=== PATIENT | female | born 1955 | race Caucasian/White ===

== ENCOUNTER → 2016-10-11 | Outpatient (CLI) | payer OTHER | LOC: FIMAGING 10:01 | PROVIDERS: ATTEND Family Medicine | DX: Z12.31 Encounter for screening mammogram for malignant neoplasm of breast (principal) | CPT/HCPCS: G0202 ==

== ENCOUNTER 2016-10-13 21:13 | Emergency (ER) | payer OTHER ==
[2016-10-13 21:47] LABS: % IMMATURE GRANULYOCYTES 0.4 % (0.0-1.1); ABSOLUTE IMMATURE GRANULOCYTES 0.03 10^3/uL (0.00-0.10); ADD DIFF? NO; ADD MORPH? NO; ADD SCAN? NO; ATYPICAL LYMPHOCYTE FLAG 10 (0-99); FRAGMENT RBC FLAG 0 (0-99); HEMATOCRIT 42.4 % (38.0-47.0); LEFT SHIFT FLG 0 (0-99); LIPEMIA HEMOLYSIS FLAG 80 (0-99); MEAN CELL HEMOGLOBIN 31.3 pg (27.9-34.1); MEAN CELL VOLUME 94.6 fL (81.5-99.8); MEAN PLATELET VOLUME 10.9 fL (8.7-11.7); PLATELET CLUMPS FLAG 0 (0-99); PLATELET COUNT 222 10^3/uL (150-400); RED BLOOD CELL COUNT 4.48 10^6/uL (4.18-5.33); RED CELL DISTRIBUTION WIDTH 14.3 % (11.5-15.2)
[2016-10-13 22:02] LABS: ALANINE AMINOTRANSFERASE 49 IU/L (9-52); ALBUMIN 4.5 g/dL (3.5-5.0); ALKALINE PHOSPHATASE 71 IU/L (38-126); ANION GAP 14 mEq/L (8-16); ASPARTATE AMINOTRANSFERASE 33 IU/L (14-46); BILIRUBIN,TOTAL 0.7 mg/dL (0.1-1.4); BILIRUBIN-CONJUGATED 0.3 mg/dL (0.0-0.5); BILIRUBIN-UNCONJUGATED 0.4 mg/dL (0.0-1.1); CALCIUM 9.7 mg/dL (8.5-10.4); CARBON DIOXIDE 28 mEq/l (22-31); CHLORIDE 97 mEq/L (97-110); CREATININE 0.8 mg/dL (0.6-1.0); GLOMERULAR FILTRATION RATE > 60; GLUCOSE 92 mg/dL (70-100); SODIUM 139 mEq/L (134-144); TOTAL PROTEIN 7.7 g/dL (6.3-8.2)
--- NOTE | 2016-10-13 22:06 | EDPHY ---
H & P Stated Complaint: pt c/o R sided abd pain radiating into lower back, nausea - no vomiting Time Seen by Provider: 10/13/16 21:39 HPI/ROS: CHIEF COMPLAINT: Right upper quadrant pain HISTORY OF PRESENT ILLNESS: 61-year-old female complaining of 1 day of right upper quadrant pain radiating to her back with associated nausea. No vomiting. The pain seemed to start yesterday morning approximately 20 minutes after eating. Currently she is hungry for ice cream only with no nausea or vomiting currently. She is complaining of pain in this location. No recent URI symptoms , no cough or illness. No urinary complaints. She has a history of pulmonary embolus, has been off of anticoagulant medications for some time. No history of abdominal surgeries REVIEW OF SYSTEMS: A ten point review of systems was performed and is negative with the exception of the items mentioned in the HPI PAST MEDICAL & SURGICAL HISTORY: Remote history of pulmonary embolus. History of hypothyroid. COPD. Home oxygen dependent. SOCIAL HISTORY:nonsmoker PHYSICAL EXAM (Prior to examination, patient consented to physical exam, hands were washed and my usual and customary physical exam procedures followed) 1) GENERAL: obese, alert and oriented. Appears to be in no acute distress. 2) HEAD: Normocephalic, atraumatic 3) HEENT: Pupils equal, round, reactive to light bilaterally. Sclera anicteric. 4) NECK: Full range of motion, no meningeal signs. 5) LUNGS: Clear auscultation bilaterally, no wheezes, no rhonchi, no retractions. 6) HEART: Regular rate and rhythm, no murmur, no heave, no gallop. 7) ABDOMEN: No guarding, negative McBurney's, positive Gore's, negative Rovsing's, negative peritoneal sign, 8) MUSCULOSKELETAL: Moving all extremities, no focal areas of tenderness, no obvious trauma. No peripheral edema or discoloration. 9) BACK: No CVA tenderness, no midline vertebral tenderness, no fluctuance, no step-off, no obvious trauma, no visual or palpable abnormality. 10) SKIN: No rash, no petechiae. 11) Psychiatric: Patient is oriented X 3, there is no agitation. DIFFERENTIAL DIAGNOSIS: In no particular order, including but not limited to biliary colic, cholecystitis, peptic ulcer disease, pancreatitis, and gastroenteritis. This is a partial list of diagnoses considered. These considerations are based on history, physical exam, past history and reassessment. - Medical/Surgical History Hx Asthma: Yes Hx Chronic Respiratory Disease: Yes Hx Diabetes: No Hx Cardiac Disease: No Hx Renal Disease: No Hx Cirrhosis: No Hx Alcoholism: No Hx HIV/AIDS: No Hx Splenectomy or Spleen Trauma: No Other PMH: BUNIONECTOMY,GOUT,HYPOTHYROID, cataract surgery R eye, copd, hypertension, asthma - Social History Smoking Status: Former smoker Constitutional: Initial Vital Signs Temperature (C) 36.9 C 10/13/16 21:17 Heart Rate 86 10/13/16 21: Respiratory Rate 18 10/13/16 21:17 Blood Pressure 157/98 H 10/13/16 21:17 O2 Sat (%) 94 10/13/16 21:17 O2 Delivery Mode Nasal Cannula O2 (L/minute) 3 Allergies/Adverse Reactions: codeine [Codeine] Allergy (Unknown, Verified 10/13/16 21:23) lidocaine [Lidocaine] Allergy (Unknown, Verified 10/13/16 21:23) methylprednisolone Allergy (Verified 10/13/16 21:23) Home Medications: Medication Instructions Recorded Allopurinol [Allopurinol 300 MG 300 mg PO HS 04/03/14 (RX)] Aspirin [Aspirin 81mg (*)] 81 mg PO DAILY 04/03/14 Calcium Carbonate [CALTRATE 600] 600 mg PO DAILY 04/03/14 LORazepam [Ativan (*)] 0.5 - 1 mg PO Q8 PRN 04/03/14 Levothyroxine [Synthroid 112 mcg 112 mcg PO DAILY06 04/03/14 (*)] Multivitamins [Multivitamin (*)] 1 each PO DAILY 04/03/14 [place]-3 Fatty Acids [Fish Oil 1000 1,000 mg PO DAILY 04/03/14 mg (*)] Triamcinolone 0.1% [Triamcinolone 1 aubrie TP DAILY PRN 04/03/14 0.1% Cream (*)] Vitamin B Complex [B Complex] 1 each PO DAILY 04/03/14 Zolpidem Tartrate [Ambien 5MG (*)] 5 mg PO HS PRN 04/03/14 Acetaminophen [Tylenol 325mg (*)] 650 mg PO Q4 PRN #0 tab 04/04/14 Albuterol 5 mg/ml INH 10/13/16 Ciprofloxacin [Cipro] 500 mg PO BID #14 tab 10/13/16 Lexapro 10/13/16 Symbicort 160-4.5 Mcg Inh (*) 10/13/16 Triamterene-Hctz 37.5-25 mg Cp 10/13/16 metroNIDAZOLE [Flagyl 500 mg (*)] 500 mg PO TID #21 tab 10/13/16 Medical Decision Making - Diagnostics Imaging Results: Imaging Impressions Abdomen Ultrasound 10/13/16 21:49 Impression: 1. No acute findings in the abdomen. 2. Suboptimally visualized enlarged fatty liver with an equivocal right hepatic lesion that is most likely related to asymmetric fatty replacement or artifact, however, given limited sensitivity of ultrasound, MR abdomen with contrast is recommended for further evaluation. Findings discussed with Piper Edward 10/13/2016 at 22:25. Chest X-Ray 10/13/16 21:49 Impression: Borderline cardiomegaly. Chest/Thorax CTA 10/13/16 22:31 Impression: 1. Equivocal stranding adjacent to the sigmoid colon, which could be related to minimal diverticulitis. 2. No visible pulmonary embolus 3. Enlarged fatty liver with no suspicious hepatic lesions identified. 4. Mild stool in the colon. 5. Additional findings as above. Findings discussed with Piper Edward 10/13/2016 at 23:23. Abdomen CT 10/13/16 22:32 Impression: 1. Equivocal stranding adjacent to the sigmoid colon, which could be related to minimal diverticulitis. 2. No visible pulmonary embolus 3. Enlarged fatty liver with no suspicious hepatic lesions identified. 4. Mild stool in the colon. 5. Additional findings as above. Findings discussed with Piper Edward 10/13/2016 at 23:23. Images reviewed by myself ED Course/Re-evaluation: 10:30 p.m.: This patient was discussed with Dr. Avila Conner in the emergency department. Her ultrasound of the gallbladder is negative. She has a remote history of pulmonary embolus and is complaining of right upper quadrant and right lower chest pain. She is also noted to have abnormal D- dimer. We discussed concerns over possible peripheral pulmonary embolus and recommended CT imaging of the chest abdomen and pelvis. Indications risks benefits discussed with patient and she consents. 11:40 p.m.: Patient re-evaluated with serial examinations. We discussed her imaging results showing possible diverticulitis in the sigmoid colon however no abnormal findings in the ascending colon at the hepatic flexure. She had normal CT angiography of the chest negative for pulmonary embolus. Plan will be treatment for diverticulitis. She has no evidence of abscess or perforation. The specific etiology of her right upper quadrant pain is not completely clear at this time as she has a normal gallbladder ultrasound, no evidence of pulmonary embolus, no infiltrate. I also think that cardiac etiology such as SD, aortic dissection, less than likely as her symptoms have been occurring for 24 hours, she has normal troponin, no ST elevation or depression. We discussed possibility of early zoster without clinical manifestations. I think she can be discharged. I have offered admission which she declines. I recommend close follow up with her primary care provider . In the meantime given usual and customary discharge precautions and instructions. She feels comfortable being discharged. - Data Points Laboratory Results: Laboratory Results 10/13/16 21:26 10/13/16 21:26 10/14/16 10/13/16 10/13/16 00:10 21:56 21:56 WBC RBC Hgb Hct MCV MCH MCHC RDW Plt Count MPV Neut % (Auto) Lymph % (Auto) [place] % (Auto) Eos % (Auto) Baso % (Auto) Nucleat RBC Rel Count Absolute Neuts (auto) Absolute Lymphs (auto) Absolute Monos (auto) Absolute Eos (auto) Absolute Basos (auto) Absolute Nucleated RBC Immature Gran % Immature Gran # D-Dimer 0.55 ug/mLFEU H ug/mLFEU (0.00-0.50) Sodium Potassium Chloride Carbon Dioxide Anion Gap BUN Creatinine Estimated GFR Glucose Calcium Total Bilirubin Conjugated Bilirubin Unconjugated Bilirubin AST ALT Alkaline Phosphatase Troponin I < 0.012 ng/mL ng/mL (0-0.034) Total Protein Albumin Lipase Urine Color YELLOW Urine Appearance CLEAR Urine pH 6.0 (5.0-7.5) Ur Specific [place] > 1.035 H (1.002-1.030) Urine Protein NEGATIVE (NEGATIVE) Urine Ketones NEGATIVE (NEGATIVE) Urine Blood NEGATIVE (NEGATIVE) Urine Nitrate NEGATIVE (NEGATIVE) Urine Bilirubin NEGATIVE (NEGATIVE) Urine Urobilinogen NEGATIVE EU EU (0.2-1.0) Ur Leukocyte Esterase 2+ H (NEGATIVE) Urine RBC Pending Urine WBC Pending Ur Epithelial Cells Pending Urine Glucose NEGATIVE (NEGATIVE) 10/13/16 10/13/16 21:26 21:26 WBC 8.53 10^3/uL 10^3/uL (3.80-9.50) RBC 4.48 10^6/uL 10^6/uL (4.18-5.33) Hgb 14.0 g/dL g/dL (12.6-16.3) Hct 42.4 % % (38.0-47.0) MCV 94.6 fL fL (81.5-99.8) MCH 31.3 pg pg (27.9-34.1) MCHC 33.0 g/dL g/dL (32.4-36.7) RDW 14.3 % % (11.5-15.2) Plt Count 222 10^3/uL 10^3/uL (150-400) MPV 10.9 fL fL (8.7-11.7) Neut % (Auto) 58.8 % % (39.3-74.2) Lymph % (Auto) 30.8 % % (15.0-45.0) [place] % (Auto) 6.0 % % (4.5-13.0) Eos % (Auto) 3.4 % % (0.6-7.6) Baso % (Auto) 0.6 % % (0.3-1.7) Nucleat RBC Rel Count 0.0 % % (0.0-0.2) Absolute Neuts (auto) 5.02 10^3/uL 10^3/uL (1.70-6.50) Absolute Lymphs (auto) 2.63 10^3/uL 10^3/uL (1.00-3.00) Absolute Monos (auto) 0.51 10^3/uL 10^3/uL (0.30-0.80) Absolute Eos (auto) 0.29 10^3/uL 10^3/uL (0.03-0.40) Absolute Basos (auto) 0.05 10^3/uL 10^3/uL (0.02-0.10) Absolute Nucleated RBC 0.00 10^3/uL 10^3/uL (0-0.01) Immature Gran % 0.4 % % (0.0-1.1) Immature Gran # 0.03 10^3/uL 10^3/uL (0.00-0.10) D-Dimer Sodium 139 mEq/L mEq/L (134-144) Potassium 4.0 mEq/L mEq/L (3.5-5.2) Chloride 97 mEq/L mEq/L (97-110) Carbon Dioxide 28 mEq/l mEq/l (22-31) Anion Gap 14 mEq/L mEq/L (8-16) BUN 17 mg/dL mg/dL (7-23) Creatinine 0.8 mg/dL mg/dL (0.6-1.0) Estimated GFR > 60 Glucose 92 mg/dL mg/dL (70-100) Calcium 9.7 mg/dL mg/dL (8.5-10.4) Total Bilirubin 0.7 mg/dL mg/dL (0.1-1.4) Conjugated Bilirubin 0.3 mg/dL mg/dL (0.0-0.5) Unconjugated Bilirubin 0.4 mg/dL mg/dL (0.0-1.1) AST 33 IU/L IU/L (14-46) ALT 49 IU/L IU/L (9-52) Alkaline Phosphatase 71 IU/L IU/L (38-126) Troponin I Total Protein 7.7 g/dL g/dL (6.3-8.2) Albumin 4.5 g/dL g/dL (3.5-5.0) Lipase 113.0 IU/L IU/L (23-300) Urine Color Urine Appearance Urine pH Ur Specific [place] Urine Protein Urine Ketones Urine Blood Urine Nitrate Urine Bilirubin Urine Urobilinogen Ur Leukocyte Esterase Urine RBC Urine WBC Ur Epithelial Cells Urine Glucose Medications Given: Discontinued Medications Ciprofloxacin (Cipro) 500 mg PO EDNOW ONE PRN Reason: Protocol Stop: 10/13/16 23:49 Last Admin: 10/14/16 00:28 Dose: 500 mg Ketorolac Tromethamine (Toradol) 15 mg IVP EDNOW ONE Stop: 10/14/16 00:06 Last Admin: 10/14/16 00:28 Dose: 15 mg Metronidazole (Flagyl) 500 mg PO EDNOW ONE PRN Reason: Protocol Stop: 10/13/16 23:49 Last Admin: 10/14/16 00:28 Dose: 500 mg Ondansetron HCl (Zofran) 4 mg IVP EDNOW ONE Stop: 10/13/16 22:46 Last Admin: 10/13/16 22:47 Dose: 4 mg Departure - Departure Disposition: Home, Routine, Self-Care Clinical Impression: Sigmoid diverticulitis Urinary tract infection Qualifiers: Urinary tract infection type: acute cystitis Hematuria presence: without hematuria Qualified Code(s): N30.00 - Acute cystitis without hematuria Condition: Good Instructions: Diverticulitis (ED), Urinary Tract Infection in Women (ED) Additional Instructions: Return to emergency room immediately if you develop skin rash, vomiting, fevers , inability to tolerate oral intake or any other symptoms that concern you. Referrals: Santana Canales DO [Primary Care Provider] - 10/15/16 Prescriptions: Ciprofloxacin [Cipro] 500 mg PO BID #14 tab metroNIDAZOLE [Flagyl 500 mg (*)] 500 mg PO TID #21 tab
--- NOTE | 2016-10-13 22:18 | CPEKG ---
Heart Rate: 78 RR Interval: 769 P-R Interval: 180 QRSD Interval: 90 QT Interval: 404 QTC Interval: 461 P [place]: 56 QRS [place]: 20 T Wave [place]: 10 EKG Severity - BORDERLINE ECG - EKG Impression: SINUS RHYTHM EKG Impression: LOW VOLTAGE THROUGHOUT EKG Impression: BORDERLINE T ABNORMALITIES, ANTERIOR LEADS Electronically Signed By: Saturnino Levy 16-Oct-2016 06:11:03
[2016-10-13] MEDS ORDERED: IOPAMIDOL (ISOVUE 370) 100 ML BTL IV ONE (22:37)
[2016-10-13] MEDS ORDERED: ONDANSETRON 4 MG/2 ML VIAL ONE (22:45)
[2016-10-13] MEDS ORDERED: ONDANSETRON 4 MG/2 ML VIAL IVP ONE (22:45)
[2016-10-13] MEDS ORDERED: CIPROFLOXACIN 500 MG TAB PO ONE (23:48)
[2016-10-13] MEDS ORDERED: metroNIDAZOLE 500 MG TAB PO ONE (23:48)
[2016-10-14] MEDS ORDERED: KETOROLAC 15 MG/1 ML SDV IVP ONE (00:05)
[2016-10-14 00:54] LABS: COLOR YELLOW; LEUKOCYTE ESTERASE,URINE 2+ (NEGATIVE); NITRITE,URINE NEGATIVE (NEGATIVE)
[2016-10-14 01:14] VITALS: BP 128/81; PULSE 78; RESP 16; TEMP 98.1; O2SAT 92
== END 2016-10-14 01:13 | disposition home or self-care (01) ==
DX: K57.32 Diverticulitis of large intestine without perforation or abscess without bleeding (principal); N30.00 Acute cystitis without hematuria; B96.89 Other specified bacterial agents as the cause of diseases classified elsewhere; J44.9 Chronic obstructive pulmonary disease, unspecified; I10 Essential (primary) hypertension; Z79.82 Long term (current) use of aspirin; Z87.891 Personal history of nicotine dependence
CPT/HCPCS: 96374; J1885; J2405; Q9967

== ENCOUNTER → 2016-12-31 | Outpatient (CLI) | payer OTHER | LOC: FIMAGING 09:55 | PROVIDERS: ATTEND Family Medicine | DX: R51 Headache (principal) ==

== ENCOUNTER → 2017-01-28 | Outpatient (CLI) | payer OTHER | LOC: FIMAGING 10:13 | PROVIDERS: ATTEND Family Medicine | DX: Z13.820 Encounter for screening for osteoporosis (principal); J44.9 Chronic obstructive pulmonary disease, unspecified; Z79.899 Other long term (current) drug therapy; M85.80 Other specified disorders of bone density and structure, unspecified site ==

== ENCOUNTER → 2017-11-25 | Outpatient (CLI) | payer OTHER | LOC: FIMAGING 08:05 | PROVIDERS: ATTEND Family Medicine | DX: Z12.31 Encounter for screening mammogram for malignant neoplasm of breast (principal) ==

== ENCOUNTER → 2018-05-08 | Outpatient (CLI) | payer OTHER | LOC: FIMAGING 17:21 | PROVIDERS: ATTEND Internal Medicine Critical Care Medicine | DX: R91.8 Other nonspecific abnormal finding of lung field (principal); R06.02 Shortness of breath; R09.02 Hypoxemia; I51.7 Cardiomegaly; J44.9 Chronic obstructive pulmonary disease, unspecified; I27.20 Pulmonary hypertension, unspecified ==